=== PATIENT | male | born 1955 | race African-American/Black ===

== ENCOUNTER 2016-11-18 05:58 | Day surgery (SDC) | payer BC ==
[2016-11-18] VITALS (10 sets, daily range): BP systolic 94–159; BP diastolic 62–92; PULSE 66–92; TEMP 97.4–97.7
[~2016-11-18] VITALS: Ht 171.4 cm; Wt 81.8 kg
[2016-11-18] MEDS ORDERED: RAPAFLO8 MG PO (06:47)
[2016-11-18] MEDS ORDERED: TOPROL XL 50MG50 MG PO (06:48)
[2016-11-18] MEDS ORDERED: COZAAR 50MG50 MG/TAB PO (06:48)
[2016-11-18] MEDS ORDERED: PROSCAR 5MG5 MG PO (06:48)
[2016-11-18] MEDS ORDERED: LOPID 600M600 MG/TAB PO (06:49)
[2016-11-18] MEDS ORDERED: GLUCOTROL XL5 MG/TAB PO (06:49)
[2016-11-18] MEDS ORDERED: LIPITOR20 MG PO (06:49)
[2016-11-18] MEDS ORDERED: THE MEDICINE S200 M2 PO (06:50)
[2016-11-18] MEDS ORDERED: TIAZAC360 MG PO (06:50)
[2016-11-18] MEDS ORDERED: GLUCOPHAGE500 MG/TAB PO (06:52)
[2016-11-18] MEDS ORDERED: ASPIRIN 81M81 MG/TA2 PO (06:52)
[2016-11-18] MEDS ORDERED: VITAMIND3 5000 PO (06:52)
[2016-11-18] MEDS ORDERED: PROBIOTIC FORMU1 CAP PO (06:53)
[2016-11-18] MEDS ORDERED: VITAMIN E1000 U/CAP PO (06:53)
[2016-11-18] MEDS ORDERED: CENTRUM MEN'S PO (06:54)
[2016-11-18] MEDS ORDERED: HCTZ 25MG TAB25 MG PO (06:55)
== END 2016-11-18 13:45 | disposition home or self-care (01) ==
LOC: SDCO 05:58 → JCC 09:58 → SDCO 13:45
DX: N40.1 Benign prostatic hyperplasia with lower urinary tract symptoms (principal); R35.1 Nocturia; E11.9 Type 2 diabetes mellitus without complications; Z79.84 Long term (current) use of oral hypoglycemic drugs; I10 Essential (primary) hypertension; F17.210 Nicotine dependence, cigarettes, uncomplicated
CPT/HCPCS: OP; J0690; J1100; J2250; J2270; J2405; J2704; J3010; J7030